=== PATIENT | female | born 1990 | race Caucasian/White ===

== ENCOUNTER 2017-04-05 06:45 | Emergency (ER) | payer MEDICAID ==
[~2017-04-05] VITALS: Ht 160 cm; Wt 54.1 kg
[~2017-04-05 06:45] MED LIST: AMOXICILLIN 50500 MG PO; CEFTIN 250250 MG/TAB PO; NO HOME MEDICATIONS; NORCO 325 MG-51 TAB PO; XANAX 0.5MG0.5 MG PO; ZOLOFT 50MG50 MG PO
[2017-04-05 06:48] VITALS: BP 129/67; TEMP 98.6
[2017-04-05] MEDS ORDERED: PREDNISONE20 MG PO (07:29)
[2017-04-05] MEDS ORDERED: NORCO 325 MG-51 TAB PO (07:29)
[2017-04-05] MEDS ORDERED: CLINDAMYCIN150 MG PO (07:29)
[2017-04-05 07:45] VITALS: PULSE 76
== END 2017-04-05 07:46 | disposition home or self-care (01) ==
LOC: COL.ER 06:45
DX: M26.622 Arthralgia of left temporomandibular joint (principal); J02.9 Acute pharyngitis, unspecified

== ENCOUNTER → 2021-07-02 | Outpatient (CLI) | payer OTHER ==
[~2021-07-02] MED LIST changes: +ATIVAN 0.50.5 MG/TAB PO; +BUSPAR10 MG PO; +CLINDAMYCIN150 MG PO; +PREDNISONE20 MG PO
== END ==
LOC: COL.RAD 07:20
DX: E04.2 Nontoxic multinodular goiter (principal)

== ENCOUNTER → 2021-07-17 | Outpatient (CLI) | payer OTHER ==
[~2021-07-17] VITALS: Ht 160 cm; Wt 53.9 kg
[2021-07-17 12:12] VITALS: BP 113/74; PULSE 82; TEMP 98.3
[2021-07-17 13:20] VITALS: BP 120/57; PULSE 91
== END ==
LOC: COL.RAD 11:42
DX: E04.2 Nontoxic multinodular goiter (principal)
CPT/HCPCS: 32108

== ENCOUNTER 2021-10-12 19:34 | Emergency (ER) | payer OTHER ==
[~2021-10-12] VITALS: Ht 160 cm; Wt 53.2 kg
[2021-10-12 19:43] VITALS: TEMP 99
[2021-10-12 20:22] LABS: BASO # 0.1 K/mm3 (0.0-0.2); BASO % 0.3 % (0.0-2.0); EOS # 0.4 K/mm3 (0.0-0.7); EOS % 2.3 % (0.0-4.0); GRAN # 12.4 K/mm3 (1.4-6.5); GRAN % 77.4 % (42.2-75.2); HEMATOCRIT 29.9 % (37.0-47.0); HEMOGLOBIN 9.7 g/dl (12.5-16.0); LYMPH # 1.7 K/mm3 (1.2-3.4); LYMPH % 10.6 % (20.0-51.0); MEAN CELL VOLUME 76 fl (80.0-100.0); MEAN CORPUSCULAR HEMOGLOBIN 25 pg (27-31); MEAN CORPUSCULAR HGB CONC 32 g/dl (33.0-37.0); MEAN PLATELET VOLUME 10.8 fl (7.4-10.4); MONO # 1.5 K/mm3 (0.1-0.6); PLATELET COUNT 306 K/mm3 (130-400); RED BLOOD COUNT 3.95 M/mm3 (4.10-5.30); REDCELL DISTRIBUTION WIDTH-CV 12.9 % (11.5-14.5)
[2021-10-12 20:53] LABS: ALBUMIN 3.8 gm/dL (3.5-5.0); ALKALINE PHOSPHATASE 45 U/L (40-150); ANION GAP 11 mmol/L (7-16); AST,SGOT 14 U/L (5-34); BILIRUBIN,TOTAL 0.4 mg/dL (0.2-1.2); BLOOD UREA NITROGEN 10 mg/dL (7-19); CALCIUM 7.3 mg/dL (8.4-10.2); CARBON DIOXIDE 25 mmol/L (22-29); CHLORIDE 102 mmol/L (98-107); CREATININE, serum 0.72 mg/dL (0.57-1.11); GLUCOSE 95 mg/dL (70-99); POTASSIUM 3.6 mmol/L (3.5-4.5); SODIUM 138 mmol/L (136-145); TOTAL PROTEIN 6.6 gm/dL (6.2-8.1)
[2021-10-12 20:58] LABS: ALANINE AMINOTRANSFERASE < 6 U/L (0-55)
[2021-10-13 01:18] VITALS: BP 121/70; PULSE 71
== END 2021-10-13 01:18 | disposition short-term general hospital (02) ==
LOC: COL.ER 19:34
PROVIDERS: Nurse Practitioner
DX: E89.89 Other postprocedural endocrine and metabolic complications and disorders (principal); R06.02 Shortness of breath; Z85.850 Personal history of malignant neoplasm of thyroid; Z20.822 Contact with and (suspected) exposure to COVID-19
CPT/HCPCS: J0610; J1100; J1170; J7030; Q9967